=== PATIENT | female | born 1945 | race Caucasian/White ===

== ENCOUNTER 2021-02-15 11:06 | Inpatient (IN) | payer MEDICARE, OTHER ==
[~2021-02-15] VITALS: Ht 162.6 cm; Wt 72.6 kg
[2021-02-15 14:21] LABS: HEMOGLOBIN 14.9 gm/dl (12.3-15.3); RED BLOOD COUNT 5.46 M/UL (4.00-5.10); WHITE BLOOD COUNT 17.7 K/UL (4.5-11.0)
[2021-02-16] MEDS ORDERED: LEVOTHYROXINE150 MCG PO (11:31)
[2021-02-16] MEDS ORDERED: CRESTOR40 MG PO (11:32)
[2021-02-16] MEDS ORDERED: METFORMIN HCL1000 MG PO (11:32)
[2021-02-16] MEDS ORDERED: XANAX0.5 MG PO (11:34)
[2021-02-16] MEDS ORDERED: HYDROCODON-ACE1 EAC6 PO (11:35)
--- NOTE | 2021-02-16 18:09 | NUR ---
CALLED AND GAVE REPORT TO CELESTINO AT THIS TIME NOTED
[2021-02-17 04:53] LABS: HEMOGLOBIN 13.1 gm/dl (12.3-15.3)
[2021-02-17 05:21] LABS: BUN/CREATININE RATIO 11 (0-10)
[2021-02-17 05:37] LABS: RED BLOOD COUNT 4.66 M/UL (4.00-5.10); WHITE BLOOD COUNT 10.2 K/UL (4.5-11.0)
[2021-02-18 09:32] LABS: HEMOGLOBIN 12.8 gm/dl (12.3-15.3); RED BLOOD COUNT 4.59 M/UL (4.00-5.10); WHITE BLOOD COUNT 11.3 K/UL (4.5-11.0)
[2021-02-18 09:49] LABS: BUN/CREATININE RATIO 8 (0-10)
[2021-02-18] MEDS ORDERED: K-DUR TAB 20 M20 MEQ PO (11:25)
[2021-02-18] MEDS ORDERED: LANTUS SOL100 UNIT/1 SQ (11:25)
[2021-02-18] MEDS ORDERED: FLU VACCINE IM (11:25)
[2021-02-18] MEDS ORDERED: HUMIBID LA TAB600 MG PO (11:25)
[2021-02-18] MEDS ORDERED: LOTRIMIN CREAM15 GM TOP (11:25)
[2021-02-18] MEDS ORDERED: HYDROCODON-ACE1 EAC6 PO (11:25)
[2021-02-18] MEDS ORDERED: AUGMENTIN 875-1 EACH PO (11:25)
[2021-02-18 17:37] LABS: BUN/CREATININE RATIO 9 (0-10)
== END 2021-02-18 19:06 | disposition home or self-care (01) | DRG 871 ==
LOC: ER1 11:06 → CDU 16:16 → MED SURG 4 02-16 18:40
PROVIDERS: Family Medicine; Internal Medicine; ADMIT Family Medicine
DX: A41.9 Sepsis, unspecified organism (principal); J18.9 Pneumonia, unspecified organism; G93.49 Other encephalopathy; Z20.822 Contact with and (suspected) exposure to COVID-19; N39.0 Urinary tract infection, site not specified; E87.1 Hypo-osmolality and hyponatremia; M62.82 Rhabdomyolysis; E78.5 Hyperlipidemia, unspecified; I10 Essential (primary) hypertension; M17.0 Bilateral primary osteoarthritis of knee; E86.0 Dehydration; G25.81 Restless legs syndrome; B37.2 Candidiasis of skin and nail; E11.65 Type 2 diabetes mellitus with hyperglycemia; E03.9 Hypothyroidism, unspecified; L89.892 Pressure ulcer of other site, stage 2; R62.7 Adult failure to thrive; E87.6 Hypokalemia; R74.01 Elevation of levels of liver transaminase levels; Z79.4 Long term (current) use of insulin; Z90.49 Acquired absence of other specified parts of digestive tract; Z82.49 Family history of ischemic heart disease and other diseases of the circulatory system; Z23 Encounter for immunization
CPT/HCPCS: 36415; 36600; 70450; 71045; 71046; 80048; 80053; 80307; 81001; 82550; 82553; 82803; 82962; 83036; 83605; 83690; 83735; 84132; 84439; 84443; 84484; 85025; 85027; 87040; 87086; 94664; 94760; 97116-GP-CQ; 97161; 97165; 97530-GP-CQ; 99285; A6212; J0456; J1650; J2543; J3475; J3480; J7030; Q9967; U0002

== ENCOUNTER 2022-01-22 16:16 | Inpatient (IN) | payer MEDICARE, OTHER ==
[~2022-01-22] VITALS: Ht 157.5 cm; Wt 79.4 kg
[~2022-01-22 16:16] MED LIST: AUGMENTIN 875-1 EACH PO; CRESTOR40 MG PO; FLU VACCINE IM; HUMIBID LA TAB600 MG PO; HYDROCODON-ACE1 EAC6 PO; K-DUR TAB 20 M20 MEQ PO; LANTUS SOL100 UNIT/1 SQ; LEVOTHYROXINE150 MCG PO; LOTRIMIN CREAM15 GM TOP; METFORMIN HCL1000 MG PO; XANAX0.5 MG PO
[2022-01-22 17:05] LABS: HEMOGLOBIN 14.3 gm/dl (12.3-15.3); RED BLOOD COUNT 4.77 M/UL (4.00-5.10); WHITE BLOOD COUNT 10.5 K/UL (4.5-11.0)
[2022-01-22 17:26] LABS: BUN/CREATININE RATIO 13 (0-10)
[2022-01-23 06:22] LABS: HEMOGLOBIN 12.9 gm/dl (12.3-15.3); RED BLOOD COUNT 4.38 M/UL (4.00-5.10); WHITE BLOOD COUNT 11.3 K/UL (4.5-11.0)
[2022-01-23 06:42] LABS: BUN/CREATININE RATIO 14 (0-10)
[2022-01-23] MEDS ORDERED: HYDROCODON-ACE1 EAC6 PO (10:14)
[2022-01-23] MEDS ORDERED: PREGABALIN300 MG PO (10:16)
[2022-01-23] MEDS ORDERED: XANAX0.5 MG PO (10:17)
[2022-01-23] MEDS ORDERED: XULTOPHY 100 UNI3 ML SQ (10:18)
[2022-01-23] MEDS ORDERED: PAROXETINE HCL40 MG PO (10:19)
--- NOTE | 2022-01-23 10:23 | NUR ---
[address] GARDUNO R/T PATIENTS BLOOD PRESSURE OF 177/100, DR GARDUNO STATED HE WOULD ORDER 1 DOSE NOW OF NORVASC AND START ON DAILY REGIMEN OF NORVASC.
--- NOTE | 2022-01-23 10:41 | NUR ---
1041- PATIENT WAS WITH AT BEDSIDE. PATIENT STATES HE HIS LEAVING THAT HE IS TIRES OF WAITING ON MD. 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 SHE STATED THAT WE FED HIM LAST NIGHT AND HE WASTED AN ENTIRE NIGHT HERE. I NOTIFED PT AND PATIENT THAT HE MUST SIGN AMA PAPER IF LEAVING. PATIENTS STATED HE DID NOT HAVE TO SIGN ANYTHING. PT STATED I COULD CALL THE LAW IF NECESSARY PT REMOVED IV AND PT AND LEFT HOSPITAL. 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
--- NOTE | 2022-01-24 03:49 | NUR ---
PT HAS B/P OS 182/112, MADE AWARE, NEW ORDERS NOTED.
[2022-01-24 06:14] LABS: HEMOGLOBIN 12.5 gm/dl (12.3-15.3); RED BLOOD COUNT 4.26 M/UL (4.00-5.10); WHITE BLOOD COUNT 10.2 K/UL (4.5-11.0)
[2022-01-24 07:04] LABS: BUN/CREATININE RATIO 9 (0-10)
[2022-01-25 06:06] LABS: RED BLOOD COUNT 4.37 M/UL (4.00-5.10); WHITE BLOOD COUNT 11.7 K/UL (4.5-11.0)
[2022-01-25 06:58] LABS: BUN/CREATININE RATIO 12 (0-10)
[2022-01-25] MEDS ORDERED: AMLODIPINE BESYL5 MG PO (09:16)
[2022-01-25] MEDS ORDERED: CORGARD 40MG TA40 MG PO (09:16)
[2022-01-25] MEDS ORDERED: OMNICEF 300 MG300 MG PO (09:16)
== END 2022-01-25 11:11 | disposition home or self-care (01) | DRG 689 ==
LOC: ER1 16:16 → CDU 18:25 → M/S 18:25
PROVIDERS: Emergency Medicine; Internal Medicine Infectious Disease; ADMIT Family Medicine
DX: N30.00 Acute cystitis without hematuria (principal); G92.8 Other toxic encephalopathy; Z20.822 Contact with and (suspected) exposure to COVID-19; E11.9 Type 2 diabetes mellitus without complications; E03.9 Hypothyroidism, unspecified; I10 Essential (primary) hypertension; T50.995A Adverse effect of other drugs, medicaments and biological substances, initial encounter; E87.6 Hypokalemia; M19.90 Unspecified osteoarthritis, unspecified site; E78.5 Hyperlipidemia, unspecified; Z90.49 Acquired absence of other specified parts of digestive tract; Z82.49 Family history of ischemic heart disease and other diseases of the circulatory system; Z79.4 Long term (current) use of insulin
CPT/HCPCS: 36415; 70450; 71045; 80048; 80053; 81001; 82140; 82550; 82553; 82962; 83036; 83605; 83735; 84132; 84484; 85025; 85027; 87040; 87077; 87086; 87186; 93005; 96372; 96374; 96375; 96376; 99285; G0378; J0696; J1650; J2405; U0002